=== PATIENT | male | born 1995 | race African-American/Black ===

== ENCOUNTER 2024-05-02 16:25 | Emergency (ER) | payer MEDICAID, OTHER ==
[~2024-05-02] VITALS: Ht 165.1 cm; Wt 50.5 kg
[2024-05-02 16:30] VITALS: BP 112/75; PULSE 98; RESP 18; TEMP 97.6; O2SAT 98
[2024-05-02] MEDS ORDERED: IBUP-1842 PO (16:59)
[2024-05-02] MEDS ORDERED: ACET-10509 PO (16:59)
[2024-05-02] MEDS: IBUPROFEN 400 MG TAB PO ONE (17:13)
[2024-05-02] MEDS: ACETAMINOPHEN EXTRA STRENGTH 500 MG TAB PO ONE (17:14)
[2024-05-02 18:22] LABS: FLU A ANTIGEN negative (NEGATIVE); FLU B ANTIGEN NEGATIVE (NEGATIVE)
== END 2024-05-02 17:30 | disposition home or self-care (01) ==
LOC: MED 16:25
DX: J06.9 Acute upper respiratory infection, unspecified (principal); Z20.822 Contact with and (suspected) exposure to COVID-19; Z79.899 Other long term (current) drug therapy
CPT/HCPCS: 87081; 99283

== ENCOUNTER 2024-07-22 17:32 | Emergency (ER) | payer OTHER ==
[~2024-07-22] VITALS: Ht 165.1 cm; Wt 48.5 kg
[~2024-07-22 17:32] MED LIST: ACET500T99 PO; IBUP-1842 PO
[2024-07-22 17:34] VITALS: BP 113/82; PULSE 92; RESP 16; TEMP 98; O2SAT 99
[2024-07-22 18:35] LABS: FLU A ANTIGEN negative (NEGATIVE); FLU B ANTIGEN negative (NEGATIVE)
[2024-07-22] MEDS ORDERED: BENZ150C7 PO (19:26)
== END 2024-07-22 19:38 | disposition home or self-care (01) ==
LOC: MED 17:32
DX: J06.9 Acute upper respiratory infection, unspecified (principal); Z20.822 Contact with and (suspected) exposure to COVID-19; Z79.899 Other long term (current) drug therapy
CPT/HCPCS: 71045; 99284